=== PATIENT | female | born 2000 | race Caucasian/White ===

== ENCOUNTER 2020-11-15 20:05 | Emergency (ER) | payer OTHER ==
[~2020-11-15] VITALS: Ht 160 cm; Wt 61.4 kg
[2020-11-15 20:15] VITALS: TEMP 98.3
[2020-11-15 23:55] VITALS: BP 108/67; PULSE 78
== END 2020-11-15 23:55 | disposition home or self-care (01) ==
LOC: COL.ER 20:05
DX: R11.2 Nausea with vomiting, unspecified (principal)
CPT/HCPCS: J0780; J1885